=== PATIENT | female | born 1985 | race Caucasian/White ===

== ENCOUNTER 2018-10-06 10:40 | Inpatient (IN) | payer OTHER ==
[2018-10-06] MEDS ORDERED: PROMETHAZINE HCL 25 MG/1 ML VIAL IVPB ONE (11:24)
[2018-10-06] MEDS ORDERED: BUTORPHANOL TARTRATE 1 MG/ML VIAL IVPB ONE (11:24)
--- NOTE | 2018-10-06 11:28 | HP ---
Past Medical History - Admission Chief Complaint: IOL, cholestasis History of Present Illness: 32yo @ 37.5wks by charity, ALEX 10/22/18 here for IOL for cholestasis. +FM. No VB/LOF. No ctx. Had sono today, BPP 11/27. #6lbs EFW today on sono. Preg c/b cholestasis; diagnosed 09/24 with elevated bile acids/LFTs- 47 PNC @ [address] History Source: Patient - Past Medical History [employer]: No: Alzheimer's, CVA, Dementia, Migraine, Multiple Sclerosis, Peripheral Neuropathy, Parkinson's, Seizure, Syncope, TIA, Vertigo, Other Cardiovascular: No: AFIB, Aneurysm, Aortic Insufficiency, Aortic Stenosis, CAD, CHF, Deep Vein Thrombosis, HTN, Hyperlipdemia, [place], Mitral Insufficiency, Mitral Stenosis, Murmur, Pulmonary Hypertension, Other Pulmonary: No: Asthma, Bronchitis, Cancer, COPD, O2 Dependent, Pneumonia, Previously Intubated, Pulmonary Embolus, Pulmonary Fibrosis, Sleep Apnea, Other Gastrointestinal: No: Ascites, Cancer, Constipation, Crohn's Disease, Diverticulitis, Diverticulosis, Esophageal Varices, Gastritis, GERD, GI Bleed, Hemorrhoids, Hiatal Hernia, Inflamatory Bowel Disease, Irritable Bowel Disease, Pancreatitis, Peptic Ulcer Disease, Ulcerative Colitis, Other ...: 4 ...Para: 2 ...Term: 2 ...Spon : 1 ... Weeks Gestation by Dates: 37.5 ...EDC by Dates: 10/03/18 ...EDC by Sono: 10/22/18 - Past Surgical History Past Surgical History: Yes: None Hx Myomectomy: No Hx Transabdominal Cerclage: No Home Medications - Allergies Allergies/Adverse Reactions: Allergies Allergy/AdvReac Type Severity Reaction Status Date / Time No Known Allergies Allergy Verified 10/06/18 11:03 - Home Medications Home Medications: Ambulatory Orders Pnv No.95/Ferrous Fum/Folic AC [ Vitamin Tablet] 1 each PO DAILY Ursodiol [Actigal] 300 mg PO BID 10/06/18 Physical Exam - Maternity - Abdominal Exam/OB Number of Fetuses: Single Presentation: Vertex Contractions: Yes Regularity: Irregular Intensity: Unaware Monitor Mode: External Category: I Accelerations: Non-Uniform - Vaginal Exam/OB Vaginal Bleediing: No Speculum Exam: No Dilatation (cm): 0 Effacement (%): 0 Amniotic Membrane Status: Intact Presentation: Vertex/Position Station: -3 - Physical Exam Edema: No Assessment/Plan 32yo @ 37.5wks here for IOL for cholestasis Admit to L&D IVFs Cat I tracing GBS neg Cervidil for ripening Augmentation pitocin/AROM Anticipate Amari Gar MD
[2018-10-06] MEDS: ELECTROLYTE-148 SOLN 1,000 ML IV SCH (11:30)
[2018-10-06] MEDS ORDERED: DINOPROSTONE 10 MG VAGINAL SUPPOSITORY VG ONE (11:35)
[2018-10-06 12:06] LABS: BASO % 0.3 % (0-2.0); EOS % 0.3 % (0-4.5); HEMATOCRIT 35.9 % (32.4-45.2); LYMPH % 20.1 % (8-40); MCH 30.7 pg (25.7-33.7); MCHC 33.5 g/dl (32.0-36.0); MEAN CELL VOLUME 91.5 fl (80-96); MEAN PLT VOLUME 8.7 fl (7.5-11.1); MONO % 5.5 % (3.8-10.2); NEUT % 73.8 % (42.8-82.8); RBC 3.92 M/mm3 (3.60-5.2); RDW 13.6 % (11.6-15.6); WHITE BLOOD COUNT 5.7 K/mm3 (4.0-10.0)
[2018-10-06 12:14] LABS: PLATELET COUNT 258 K/MM3 (134-434)
[2018-10-06 12:15] LABS: INR 0.85 (0.83-1.09)
[2018-10-06 12:18] LABS: ACTIVATED PTT 28.6 SECONDS (25.2-36.5)
--- NOTE | 2018-10-06 12:26 | PN ---
Progress Note (short form) - Note Progress Note: Cervidil placed. Long/closed/-3 Vikram. MD Rin
[2018-10-06 12:28] VITALS: BMI 24.8
[2018-10-06 12:28] LABS: BLOOD UREA NITROGEN 8.5 mg/dL (7-18); CALCIUM 8.7 mg/dL (8.5-10.1); CREATININE 0.6 mg/dL (0.55-1.3)
[2018-10-06] MEDS ORDERED: BUTORPHANOL TARTRATE 2 MG/ML VIAL ONE (21:48)
[2018-10-06] MEDS ORDERED: PROMETHAZINE HCL 25 MG/1 ML VIAL ONE (21:49)
[2018-10-07] MEDS ORDERED: OXYTOCIN 20 UNITS in 0.9% NS 20 UNIT/1,000 ML INFUS.BAG IV ONE (03:43)
[2018-10-07] MEDS ORDERED: LIDOCAINE HCL 1% PRESERVATIVE FREE - 30ML VIAL ONE (03:44)
[2018-10-07] MEDS ORDERED: BENZOCAINE 20% 57 GM BOTTLE TP PRN (04:37)
[2018-10-07] MEDS ORDERED: BENZOCAINE 28 GM HEMORRHOIDAL OINTMENT TP PRN (04:37)
[2018-10-07] MEDS ORDERED: METHYLERGONOVINE MALEATE 0.2 MG/1 ML AMP IM PRN (04:37)
[2018-10-07] MEDS ORDERED: BISACODYL 10 MG SUPP.RECT RC PRN (04:37)
[2018-10-07] MEDS ORDERED: WITCH HAZEL 50% (TUCKS) 40 PAD/JAR PAD TP PRN (04:37)
--- NOTE | 2018-10-07 04:42 | PN ---
Delivery - Delivery Vaginal Delivery: Spontaneous Episiotomy/Laceration: None EBL (cc): 300 Delivery, Single - Feeding Plan Initial Plan: Elected not to breastfeed exclusively throughout hospitalization Remarks - Remarks Remarks: Normal spontaneous vaginal delivery of a live infant boy over intact perineum. Nose / Oropharynx suctioned @ perinum. Cord clamped and cut. Baby handed to nurse. Placenta expelled spontaneously intact. Mother in stable condition.
[2018-10-07] MEDS ORDERED: OXYTOCIN 20 UNITS in 0.9% NS 20 UNIT/1,000 ML INFUS.BAG IV SCH (04:45)
[2018-10-07] MEDS: FERROUS SO4 325 MG TABLET (FP) PO SCH ×2 (09:39→22:15)
[2018-10-07] MEDS: PRENATAL VITAMINS W/ FOLIC ACID TABLET (FP) PO SCH (09:40)
[2018-10-07] MEDS: IBUPROFEN 600 MG TABLET (FP) PO PRN (09:43)
[2018-10-07] MEDS: ACETAMINOPHEN 325 MG TABLET (FP) PO PRN (09:43)
[2018-10-07] MEDS: ELECTROLYTE-148 SOLN 1,000 ML IV SCH (20:01)
--- NOTE | 2018-10-08 07:05 | PN ---
Post Progress Note - Subjective Subjective: Doing well, attempting to breast feed and would like to see dairy nutrition consultant Post Day: 1 Type of Delivery: Vital Signs: Vital Signs Temperature 98.0 F 10/08/18 02:00 Pulse Rate 68 10/08/18 02:00 Respiratory Rate 18 10/08/18 02:00 Blood Pressure 110/70 10/08/18 02:00 O2 Sat by Pulse Oximetry (%) Breast Exam: Yes: Other (deferred) Uterus: Yes: Fundus Firm Abdomen/GI: Yes: Abdomen soft Lochia, amount: Small Extremities: Yes: Calves non-tender Activity: Ambulating - Labs Labs: CBC WBC 5.7 K/mm3 (4.0-10.0) 10/06/18 11:25 RBC 3.92 M/mm3 (3.60-5.2) 10/06/18 11:25 Hgb 12.0 GM/dL (10.7-15.3) 10/06/18 11:25 Hct 35.9 % (32.4-45.2) 10/06/18 11:25 MCV 91.5 fl (80-96) 10/06/18 11:25 MCH 30.7 pg (25.7-33.7) 10/06/18 11:25 MCHC 33.5 g/dl (32.0-36.0) 10/06/18 11:25 RDW 13.6 % (11.6-15.6) 10/06/18 11:25 Plt Count 258 K/MM3 (134-434) 10/06/18 11:25 MPV 8.7 fl (7.5-11.1) 10/06/18 11:25 Absolute Neuts (auto) 4.2 K/mm3 (1.5-8.0) 10/06/18 11:25 Neutrophils % 73.8 % (42.8-82.8) 10/06/18 11:25 Lymphocytes % 20.1 % (8-40) 10/06/18 11:25 Monocytes % 5.5 % (3.8-10.2) 10/06/18 11:25 Eosinophils % 0.3 % (0-4.5) 10/06/18 11:25 Basophils % 0.3 % (0-2.0) 10/06/18 11:25 Nucleated RBC % 0 % (0-0) 10/06/18 11:25 Assessment/Plan PPD # 1 in stable condition and PP precautions instructions reviewed -Continue PP care - consult
[2018-10-08 07:22] LABS: BASO % 0.2 % (0-2.0); EOS % 0.3 % (0-4.5); HEMATOCRIT 29.7 % (32.4-45.2); HEMOGLOBIN 10.2 GM/dL (10.7-15.3); LYMPH % 27.8 % (8-40); MCH 31.4 pg (25.7-33.7); MCHC 34.4 g/dl (32.0-36.0); MEAN CELL VOLUME 91.3 fl (80-96); MEAN PLT VOLUME 8.7 fl (7.5-11.1); MONO % 6.9 % (3.8-10.2); NEUT % 64.8 % (42.8-82.8); PLATELET COUNT 208 K/MM3 (134-434); RBC 3.25 M/mm3 (3.60-5.2); RDW 13.7 % (11.6-15.6)
[2018-10-08] MEDS: ACETAMINOPHEN 325 MG TABLET (FP) PO PRN ×2 (08:54→22:08)
[2018-10-08] MEDS: IBUPROFEN 600 MG TABLET (FP) PO PRN ×2 (08:54→22:08)
[2018-10-08] MEDS: PRENATAL VITAMINS W/ FOLIC ACID TABLET (FP) PO SCH ×2 (08:56→09:04)
[2018-10-08] MEDS: FERROUS SO4 325 MG TABLET (FP) PO SCH ×3 (08:56→22:07)
[2018-10-08] MEDS ORDERED: SENNOSIDES/DOCUSATE COMBO (SENNA PLUS) TABLET (UD) PO PRN (22:00)
--- NOTE | 2018-10-09 07:22 | DS ---
Physical Examination Vital Signs: Vital Signs Temperature 98.4 F 10/08/18 21:35 Pulse Rate 66 10/08/18 21:35 Respiratory Rate 18 10/08/18 21:35 Blood Pressure 126/76 10/08/18 21:35 O2 Sat by Pulse Oximetry (%) Constitutional: Yes: Well Nourished, No Distress, Calm Eyes: Yes: WNL, Conjunctiva Clear, EOM Intact HENT: Yes: WNL, Atraumatic, Normocephalic Neck: Yes: WNL, Supple, Trachea Midline Cardiovascular: Yes: WNL, Regular Rate and Rhythm Respiratory: Yes: WNL, Regular, CTA Bilaterally Gastrointestinal: Yes: WNL, Normal Bowel Sounds Musculoskeletal: Yes: WNL Extremities: Yes: WNL Edema: No Integumentary: Yes: WNL Neurological: Yes: WNL, Alert, Oriented ...Motor Strength: WNL Psychiatric: Yes: WNL Labs: CBC, BMP 10/08/18 06:35 10/06/18 11:25 Discharge Summary Reason For Visit: INDUCTION OF LABOR Procedures: Principal: Hospital Course: Patient admitted for IOL for cholestasis She had an uncomplicated She met all milestones She was discharged home on PPD#2 M. MD Rin Condition: Stable - Instructions Diet, Activity, Other Instructions: Regular Diet Follow up in 4-6 weeks in the clinic Referrals: Mariah Gar MD [Staff Physician] - Disposition: HOME - Home Medications Comprehensive Discharge Medication List: Ambulatory Orders Pnv No.95/Ferrous Fum/Folic AC [ Vitamin Tablet] 1 each PO DAILY Ursodiol [Actigal] 300 mg PO BID 10/06/18 Ibuprofen 600 mg PO Q6H PRN #30 tablet 10/08/18
[2018-10-09 08:42] VITALS: BP 104/54; PULSE 64; TEMP 98
[2018-10-09] MEDS: FERROUS SO4 325 MG TABLET (FP) PO SCH (09:07)
[2018-10-09] MEDS: PRENATAL VITAMINS W/ FOLIC ACID TABLET (FP) PO SCH (09:08)
== END 2018-10-09 13:30 | disposition home or self-care (01) | DRG 560 ==
LOC: JLDR 10:40 → J3W 10-07 07:59
PROVIDERS: ADMIT Obstetrics & Gynecology; ATTEND Obstetrics & Gynecology
PROC: 3E0P7VZ Introduction of Hormone into Female Reproductive, Via Natural or Artificial Opening (ICD-10-PCS; 2018-10-06)
PROC: 10E0XZZ Delivery of Products of Conception, External Approach (ICD-10-PCS; principal; 2018-10-07)
DX: O80 Encounter for full-term uncomplicated delivery (principal); Z3A.37 37 weeks gestation of pregnancy; Z37.0 Single live birth
CPT/HCPCS: 36415; 59409; 80048; 85025; 85610; 85730; 86593; 86850; 86900; 86901